=== PATIENT | male | born 1935 | race Caucasian/White ===

== ENCOUNTER 2017-10-01 10:58 | Day surgery (SDC) | payer MEDICARE, OTHER ==
--- NOTE | 2017-09-30 15:07 | HP ---
DATE OF SURGERY: 10/01/2017 ANTICIPATED PROCEDURE: Colonoscopy. HISTORY OF PRESENT ILLNESS: Patient presents for screening colonoscopy. He has had a little bit of lower abdominal discomfort. He has had some slightly loose stool, slightly firm stools. He is referred by physician. He has had a previous left inguinal herniorrhaphy by Dr. Shaw, previous laparoscopic appendectomy by Dr. Shaw. PAST MEDICAL HISTORY: ALLERGIES: CAFFEINE. MEDICATIONS: Diltiazem. Warfarin on hold. Omeprazole. PAST SURGICAL HISTORY: Tonsillectomy. Hemorrhoidectomy. Appendectomy. Left inguinal herniorrhaphy. SOCIAL HISTORY: Negative. FAMILY HISTORY: Negative. REVIEW OF SYSTEMS: Positive for hypertension. Pulmonary negative. GI: Per present illness. : Negative. Ortho/Neuro: Negative. PHYSICAL EXAMINATION: VITAL SIGNS: Normal. CHEST: Clear. COR: Regular. ABDOMEN: No palpable organomegaly or mass. IMPRESSION: The patient has had some very light symptoms lower abdominal discomfort, intermittent change in bowel habits. He presents for screening colonoscopy.
[~2017-10-01 10:58] MED LIST: Lactated Ringers 1,000 ML IV SCH
[2017-10-01] MEDS ORDERED: DIPRIVAN 200 MG/20 ML IV ONE (10:59)
[2017-10-01] MEDS ORDERED: BREVIBLOC 100 MG/10 ML IV ONE (10:59)
[2017-10-01] MEDS ORDERED: Lactated Ringers 1,000 ML IV ONE (11:18)
[2017-10-01] MEDS ORDERED: Zofran 4 MG/2 ML VIAL ONE (13:40)
--- NOTE | 2017-10-01 14:05 | OP ---
SURGERY DATE/TIME: 10/01/2017 1256 PREOPERATIVE DIAGNOSIS: Lower abdominal pain and screening. POSTOPERATIVE DIAGNOSIS: Severe diverticulosis of sigmoid. Limited prep with a prep score 6/9. PROCEDURE: Colonoscopy complete with some limit secondary to prep especially on the right side. SURGEON: Justo Ram M.D. SERGEANT OF CORRECTIONS: Randy Corbin M.D. ANESTHESIA: MAC. COMPLICATIONS: None. CONDITION: Stable. INDICATION: The patient has some left lower quadrant discomfort. He has not had any recent examination. DESCRIPTION OF PROCEDURE: Taken to endoscopy. MAC sedation provided. Anal digital examination satisfactory. Scope introduced. Rectum normal. Severe diverticulosis of sigmoid. It was navigated in descending, splenic, transverse. Starting in the right transverse there was a fair amount of stool the rest of the way. Ileocecal valve was able to be washed off and was normal. Base of the cecum washed off and normal. There was still a lot of stool in the right colon. Scope withdrawn. Circumferential withdrawal no large lesions were noted. The patient tolerated the procedure satisfactory. IMPRESSION: Severe diverticulosis. I do not think this exam needs repeated at this time in this patient at this age.
[2017-10-01 14:31] VITALS: O2SAT 95
[2017-10-01 15:37] VITALS: BP 124/69; PULSE 90
== END 2017-10-01 15:00 | disposition home or self-care (01) ==
LOC: SDC 10:58
PROVIDERS: ATTEND Surgery
DX: Z12.11 Encounter for screening for malignant neoplasm of colon (principal); K57.30 Diverticulosis of large intestine without perforation or abscess without bleeding; R10.32 Left lower quadrant pain; I10 Essential (primary) hypertension; Z79.01 Long term (current) use of anticoagulants; Z79.899 Other long term (current) drug therapy
CPT/HCPCS: 99100; J2405; J2704

== ENCOUNTER 2018-08-19 14:02 | Emergency (ER) | payer MEDICARE, OTHER ==
[2018-08-19] MEDS ORDERED: BACIGUENT PACKET TP ONE (14:19)
[2018-08-19] MEDS ORDERED: XYLOCAINE 1% HCL 20 ML MDV IJ ONE (14:19)
[2018-08-19] MEDS ORDERED: Adacel Vial IM ONE ×2 (14:19→14:45)
--- NOTE | 2018-08-19 14:23 | ERPHSYRPT ---
- History of Present Illness Time Seen by Provider: 08/19/18 14:20 Source: patient Exam Limitations: no limitations Physician History: 83-year-old white male arrives with complaint of a laceration to his right fore head symptoms for one half hour. According to the patient patient fell down a couple stairs and struck his head he is on Coumadin he has no loss of consciousness he has approximately 3 cm laceration to the right forehead. Past medical history includes atrial fibrillation coronary artery disease past surgical history includes tonsillectomy hemorrhoids appendectomy left inguinal hernia [place] Timing/Duration: today (30 minutes ago) Severity: mild Modifying Factors: Improves With: nothing Associated Symptoms: other (laceration right forehead), No nausea, No vomiting, No abdominal pain, No shortness of breath, No heartburn, No diaphoresis, No cough, No chills, No chest pain, No fever, No headaches, No loss of appetite, No malaise, No rash, No syncope, No seizure, No weakness Allergies/Adverse Reactions: caffeine Adverse Reaction (Verified 10/01/17 11:19) laxitive effect Home Medications: Diltiazem HCl 120 mg [Cardizem CD 120 MG] 120 mg PO DAILY 11/14/11 [ History] B2/Vits A,C,E/Lut/Zeaxanth/Min [Icaps Tablet] 1 each PO DAILY 08/16/14 [History] Cyanocobalamin/Folic Acid [Vitamin C98-Hkjwf Acid Tablet] 1 each PO DAILY [History] Warfarin Sodium 2 mg [Coumadin 2 MG] 4 mg PO 2100 11/03/14 [History] Lactobacillus Combination No.4 [Probiotic] 1 each PO DAILY 04/22/18 [History] Multivitamin [One-A-Day Essential] 1 each PO DAILY 04/22/18 [History] Ranitidine HCl [Acid Sampler Tester] 75 mg PO DAILY 04/22/18 [History] Hx Tetanus, Diphtheria Vaccination/Date Given: No Hx Influenza Vaccination/Date Given: Yes Hx Pneumococcal Vaccination/Date Given: No - Review of Systems Constitutional: Other (localize pain right forehead), No Fever, No Chills Eyes: No Symptoms Ears, Nose, & Throat: No Symptoms Respiratory: No Cough, No Dyspnea Cardiac: No Chest Pain, No Edema, No Syncope Abdominal/Gastrointestinal: No Symptoms Genitourinary Symptoms: No Dysuria Musculoskeletal: No Back Pain, No Neck Pain Skin: Other (laceration right forehead) Neurological: No Dizziness, No Focal Weakness, No Sensory Changes Psychological: No Symptoms Endocrine: No Symptoms All Other Systems: Reviewed and Negative - Past Medical History Pertinent Past Medical History: Yes Neurological History: Peripheral Neuropathy ENT History: No Pertinent History Cardiac History: Arrhythmia, Other Respiratory History: No Pertinent History Endocrine Medical History: No Pertinent History Musculoskeletal History: Osteoarthritis GI Medical History: No Pertinent History History: No Pertinent History Psycho-Social History: No Pertinent History Male Reproductive Disorders: No Pertinent History Other Medical History: Afib - Past Surgical History Past Surgical History: Yes Neuro Surgical History: No Pertinent History Cardiac: No Pertinent History Respiratory: No Pertinent History Gastrointestinal: Appendectomy, Hemorrhoidectomy, Hernia Repair Genitourinary: No Pertinent History Musculoskeletal: No Pertinent History Male Surgical History: No Pertinent History Other Surgical History: hemmorroidsretina surgerycataract surgery - Social History Smoking Status: Never smoker Exposure to second hand smoke: No Drug Use: none Patient Lives Alone: No - Nursing Vital Signs Nursing Vital Signs: Initial Vital Signs Temperature 97 F 08/19/18 14:17 Pulse Rate 74 08/19/18 14:17 Respiratory Rate 18 08/19/18 14:17 Blood Pressure 118/88 08/19/18 14:17 O2 Sat by Pulse Oximetry 98 08/19/18 14:17 Pain Scale Pain Intensity 3 - Physical Exam General Appearance: mild distress, alert, other (well-developed well-nourished white male 3 cm vertical laceration right forehead) Eye Exam: PERRL/EOMI, eyes nml inspection Ears, Nose, Throat Exam: normal ENT inspection, TMs normal, pharynx normal, moist mucous membranes Neck Exam: normal inspection, non-tender, supple, full range of motion Respiratory Exam: normal breath sounds, lungs clear, No respiratory distress Cardiovascular Exam: regular rate/rhythm, normal heart sounds, normal peripheral pulses, capillary refill <2 sec Gastrointestinal/Abdomen Exam: soft, normal bowel sounds, No tenderness, No mass Back Exam: normal inspection, normal range of motion, No CVA tenderness, No vertebral tenderness Extremity Exam: normal inspection, normal range of motion, pelvis stable Neurologic Exam: alert, oriented x 3, cooperative, 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 Otherwise nonacute senile brain with remote right caudate head lacunar infarct..) Ordered Tests: Active Orders 24 hr Category Date Time Status Prepare for Sutures STAT Care 08/19/18 14:19 Active Sutures STAT Care 08/19/18 14:19 Active Wound Care STAT Care 08/19/18 14:19 Active HEAD WITHOUT CONTRAST [CT] Stat Exams 08/19/18 14:19 Completed Medication Summary Discontinued Medications Generic Name Dose Route Start Last Admin Trade Name Freq PRN Reason Stop Dose Admin Bacitracin Zinc 0.9 gm 08/19/18 14:19 08/19/18 15:06 Baciguent Packet TP 08/19/18 14:20 0.9 gm STAT ONE Administration Diphtheria/Tetanus/Acell Pertussis 0.5 ml 08/19/18 14:19 08/19/18 15:06 Adacel Vial IM 08/19/18 14:20 0.5 ml .ONCE ONE Administration Diphtheria/Tetanus/Acell Pertussis Confirm 08/19/18 14:45 Adacel Vial Administered 08/19/18 14:46 Dose 0.5 ml IM .STK-MED ONE Lidocaine HCl 5 ml 08/19/18 14:19 08/19/18 14:49 Xylocaine 1% Hcl 20 Ml Mdv IJ 08/19/18 14:20 5 ml STAT ONE Administration - Progress Progress: improved Progress Note: 08/19/18 15:25 83-year-old white male who is on Coumadin arrives with complaint of 3 cm laceration to his right forehead. This occurred just prior to arrival patient's fell down a couple steps and struck his head. He has no loss of consciousness however he is on Coumadin. Head CT of the patient is remarkable for a tiny scalp laceration otherwise nonacute senile brain with remote right caudate head lacunar infarct. Laceration repair 3 cm laceration right forehead. Laceration was sterilely prepped and draped. It is anesthetized with 1% lidocaine. It is sutured with 7 5. 0 Ethilon sutures (interrupted) Bacitracin and dressing applied by nurse.. Patient will be discharged. DTaP was updated. - Departure Departure Disposition: Home Clinical Impression: Head contusion Qualifiers: Encounter type: initial encounter Contusion of head detail: unspecified part of head Qualified Code(s): S00.93XA - Contusion of unspecified part of head, initial encounter Forehead laceration Qualifiers: Encounter type: initial encounter Qualified Code(s): S01.81XA - Laceration without foreign body of other part of head, initial encounter Condition: Fair Critical Care Time: No Referrals: [facility] RASCON [Primary Care Provider] - Instructions: Laceration Repair With Stitches (DC), Closed Head Injury (DC) Additional Instructions: Return home. Bacitracin to area until healed. Keep area clean and dry. Cold packs to area 24 hours. Sutures out 5-7 days. Follow-up with your family doctor if signs of infection or problems. Return for acute distress or for severe symptoms Tylenol every 4 hours as needed for pain.
[2018-08-19 14:28] VITALS: BP 118/88; PULSE 74; O2SAT 98
--- NOTE | 2018-08-19 14:47 | XRAY ---
Indication: Right head injury following fall. Multiple contiguous axial images obtained through the head without contrast. Comparison: None Age-appropriate global atrophy and minimal periventricular degenerative micro-ischemia bilaterally. Remote appearing right caudate head lacunar infarct. No acute intracranial hemorrhage, abnormal extra-axial fluid collection, or mass effect. Fourth ventricle is midline without hydrocephalus. Tiny right frontoparietal scalp laceration. Bony calvarium intact. Visualized paranasal sinuses and mastoid air cells are clear. Impression: Tiny right scalp laceration. Otherwise nonacute senile brain with remote right caudate head lacunar infarct. CT DI 50.62
== END 2018-08-19 15:45 | disposition home or self-care (01) ==
LOC: ED 14:02
DX: S00.93XA Contusion of unspecified part of head, initial encounter (principal); S01.81XA Laceration without foreign body of other part of head, initial encounter; W10.8XXA Fall (on) (from) other stairs and steps, initial encounter; Y93.9 Activity, unspecified; Y92.89 Other specified places as the place of occurrence of the external cause; Z79.01 Long term (current) use of anticoagulants; I48.91 Unspecified atrial fibrillation; I25.10 Atherosclerotic heart disease of native coronary artery without angina pectoris; Z79.899 Other long term (current) drug therapy
CPT/HCPCS: 12013; 36415; 70450; 85610; 90471; 90715; 96372; 99284; A9270-GY

== ENCOUNTER 2018-09-05 05:19 | Emergency (ER) | payer MEDICARE, OTHER ==
--- NOTE | 2018-09-05 06:08 | ERPHSYRPT ---
- History of Present Illness Historian: patient, family Patient Subjective Stated Complaint: pt is alert and oriented. pt is ambulatory with a steady gait. pt comes in with c/o nausea, diarrhea, and abdominal pain. pt abdomen is firm, distended, pt has hyperactive bowel sounds. pt states his last bowel movement was at 0200 and has been having diarrhea all day. pt denies and red, black, or tarry stools. pt has been having chronic abd pain with alternating constipation and diarrhea. pt is scheduled to have an EGD later this month on 09/17/18. Triage Nursing Assessment: see above Timing/Duration: today, intermittent, worse Activities at Onset: none Quality: cramping Abdominal Pain Onset Location: generalized abdomen Pain Radiation: no radiation Severity of Pain-Max: moderate Severity of Pain-Current: moderate Modifying Factors: Improves With: defecating (diarrheal loose stools) Associated Symptoms: diarrhea, No chest pain, No loss of appetite, No nausea, No shortness of breath, No vomiting Previous symptoms: same symptoms as today Hx Tetanus, Diphtheria Vaccination/Date Given: Yes Hx Influenza Vaccination/Date Given: Yes Hx Pneumococcal Vaccination/Date Given: No Immunizations Up to Date: Yes <GUERA BUTLER - Last Filed: 09/05/18 06:53> <ZAYRA WILSON - Last Filed: 09/05/18 08:09> - History of Present Illness Time Seen by Provider: 09/05/18 05:50 Physician History: 83 y/o white male presents with 2 day h/o worsening abd distension, abd cramping and diarrhea. pt has these chronically but worse over last 2 days. pt has had an appendectomy in the past. he underwent a colonoscopy in October 2017 and found to have diverticular dz. he then soon after had a bout of diverticulitis. pts congressional representative is dr. duran. pt has an upper endoscopy scheduled for September 17. pts pcp is dr. rascon. 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 pt is on coumadin and has h/o atrial fibrillation. pt denies soa, denies cp and denies vomiting. pt denies new/changerer medications, denies new foods and denies recent antibiotics use. (GUERA BUTLER) Allergies/Adverse Reactions: caffeine Adverse Reaction (Verified 10/01/17 11:19) laxitive effect Home Medications: Diltiazem HCl 120 mg [Cardizem CD 120 MG] 120 mg PO DAILY 11/14/11 [ History] B2/Vits A,C,E/Lut/Zeaxanth/Min [Icaps Tablet] 1 each PO DAILY 08/16/14 [History] Cyanocobalamin/Folic Acid [Vitamin Q36-Ifbxl Acid Tablet] 1 each PO DAILY [History] Warfarin Sodium 2 mg [Coumadin 2 MG] 4 mg PO 2100 11/03/14 [History] Lactobacillus Combination No.4 [Probiotic] 1 each PO DAILY 04/22/18 [History] Dicyclomine HCl 20 mg [Bentyl 20 mg] 20 mg PO DAILY 09/05/18 [History] PANTOPRAZOLE 40 mg Tablet [Protonix 40MG Tablet] 40 mg PO DAILY 09/05/18 [ History] - Review of Systems Constitutional: No Symptoms Eyes: No Symptoms Ears, Nose, & Throat: No Symptoms Respiratory: No Symptoms Cardiac: No Symptoms Abdominal/Gastrointestinal: Abdominal Pain, Diarrhea, No Nausea, No Vomiting Genitourinary Symptoms: No Symptoms Musculoskeletal: No Symptoms Skin: No Symptoms Neurological: No Symptoms Psychological: No Symptoms Endocrine: No Symptoms Hematologic/Lymphatic: No Symptoms Immunological/Allergic: No Symptoms All Other Systems: Reviewed and Negative <GUERA BUTLER - Last Filed: 09/05/18 06:53> - Past Medical History Pertinent Past Medical History: Yes Neurological History: Peripheral Neuropathy ENT History: No Pertinent History Cardiac History: Arrhythmia, Other Respiratory History: No Pertinent History Endocrine Medical History: No Pertinent History Musculoskeletal History: Osteoarthritis GI Medical History: GERD History: No Pertinent History Psycho-Social History: No Pertinent History Male Reproductive Disorders: No Pertinent History Other Medical History: Afib - Past Surgical History Past Surgical History: Yes Neuro Surgical History: No Pertinent History Cardiac: No Pertinent History Respiratory: No Pertinent History Gastrointestinal: Appendectomy, Hemorrhoidectomy, Hernia Repair Genitourinary: No Pertinent History Musculoskeletal: No Pertinent History Male Surgical History: No Pertinent History Other Surgical History: hemmorroidsretina surgerycataract surgery - Social History Smoking Status: Never smoker Exposure to second hand smoke: No Drug Use: none Patient Lives Alone: No <GUERA BUTLER - Last Filed: 09/05/18 06:53> - Physical Exam General Appearance: mild distress, alert, anxiety Eye Exam: PERRL/EOMI Ears, Nose, Throat Exam: normal ENT inspection, moist mucous membranes Neck Exam: normal inspection, non-tender, supple, full range of motion Respiratory Exam: normal breath sounds, lungs clear, airway intact, No chest tenderness, No respiratory distress Cardiovascular Exam: tachycardia Gastrointestinal/Abdomen Exam: tenderness (generalize), distention, guarding, No rebound Rectal Exam: not done Back Exam: normal inspection, normal range of motion, No CVA tenderness Extremity Exam: normal inspection, normal range of motion, No pelvis stable Neurologic Exam: alert, oriented x 3, cooperative, 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 tested, normal mood/affect, nml cerebellar function, nml station & gait Skin Exam: normal color, warm, dry Lymphatic Exam: No adenopathy SpO2 Interpretation: normal SpO2: 99 O2 Delivery: Room Air <GUERA BUTLER - Last Filed: 09/05/18 06:53> - Nursing Vital Signs Nursing Vital Signs: Initial Vital Signs Pulse Rate 119 H 09/05/18 05:28 Respiratory Rate 16 09/05/18 05:28 Blood Pressure 125/90 09/05/18 05:28 O2 Sat by Pulse Oximetry 99 09/05/18 05:28 Pain Scale Pain Intensity 0 Ordered Tests: Active Orders 24 hr Category Date Time Status IV Insertion STAT Care 09/05/18 06:11 Active ABDOMEN AND PELVIS W CONTRAST [CT] Stat Exams 09/05/18 06:11 Taken AMYLASE Stat Lab 09/05/18 06:20 Completed CBC W DIFF Stat Lab 09/05/18 06:20 Completed CMP Stat Lab 09/05/18 06:20 Completed LIPASE Stat Lab 09/05/18 06:20 Completed Lactic Acid Stat Lab 09/05/18 06:11 Completed PROTIME WITH INR Stat Lab 09/05/18 06:20 Completed UA W/RFX UR CULTURE Stat Lab 09/05/18 06:11 Uncollected Medication Summary Generic Name Dose Route Start Last Admin Trade Name Freq PRN Reason Stop Dose Admin Potassium Chloride 20 meq in 100 mls @ 50 mls/hr 09/05/18 06:50 09/05/18 07: 13 Potassium Chloride 20 Meq In Water 100ml IV 09/05/18 08:49 50 mls/hr STAT ONE Administration Discontinued Medications Generic Name Dose Route Start Last Admin Trade Name Veronique PRN Reason Stop Dose Admin Hydromorphone HCl 1 mg 09/05/18 06:11 09/05/18 06:21 Hydromorphone 1 Mg/Ml Ampule IV 09/05/18 06:12 1 mg STAT ONE Administration Hydromorphone HCl Confirm 09/05/18 06:17 Hydromorphone 1 Mg/Ml Ampule Administered 09/05/18 06:18 Dose 1 mg .ROUTE .STK-MED ONE Sodium Chloride 1,000 mls @ 999 mls/hr 09/05/18 06:11 09/05/18 06:21 Sodium Chloride 0.9% 1000 Ml IV 09/05/18 07:11 999 mls/hr .Q1H1M STA Administration Sodium Chloride Confirm 09/05/18 06:17 Sodium Chloride 0.9% 1000 Ml Administered 09/05/18 06:18 Dose 1,000 mls @ ud .ROUTE .STK-MED ONE Potassium Chloride Confirm 09/05/18 07:09 Potassium Chloride 20 Meq In Water 100ml Administered 09/05/18 07:10 Dose 100 mls @ ud IV .STK-MED ONE Ondansetron HCl 4 mg 09/05/18 06:11 09/05/18 06:21 Zofran 4 Mg/2 Ml Vial IV 09/05/18 06:12 4 mg STAT ONE Administration Ondansetron HCl Confirm 09/05/18 06:17 Zofran 4 Mg/2 Ml Vial Administered 09/05/18 06:18 Dose 4 mg .ROUTE .STK-MED ONE Lab/Rad Data: Laboratory Result Diagrams 09/05/18 06:20 09/05/18 06:20 Laboratory Results 09/05/18 09/05/18 09/05/18 Range/Units 06:20 06:20 06:20 WBC 5.3 (4.0-10.5) K/mm3 RBC 4.71 (4.1-5.6) M/mm3 Hgb 14.2 (12.5-18.0) gm/dl Hct 42.4 (42-50) % MCV 90.0 (78-100) fl MCH 30.1 (26-32) pg MCHC 33.5 (32-36) g/dl RDW 13.8 (11.5-14.0) % Plt Count 151 (150-450) K/mm3 MPV 11.4 H (6-9.5) fl Gran % 47.9 (36.0-66.0) % Eos # (Auto) 0.01 (0-0.5) Absolute Lymphs (auto) 1.33 (1.0-4.6) Absolute Monos (auto) 1.39 H (0.0-1.3) Lymphocytes % 25.0 (24.0-44.0) % Monocytes % 26.1 H (0.0-12.0) % Eosinophils % 0.2 (0.00-5.0) % Basophils % 0.8 (0.0-0.4) % Absolute Granulocytes 2.56 (1.4-6.9) Basophils # 0.04 (0-0.4) PT 27.0 H (8.83-12.87) SECONDS INR 2.30 (0.8-3.0) Sodium 143 (137-145) mmol/L Potassium 3.0 L (3.5-5.1) mmol/L Chloride 105 (98-107) mmol/L Carbon Dioxide 25 (22-30) mmol/L Anion Gap 16.0 H (5-15) MEQ/L BUN 19 (9-20) mg/dL Creatinine 1.17 (0.66-1.25) mg/dL Estimated GFR > 60.0 ML/MIN Glucose 106 (74-106) mg/dL Lactic Acid (0.4-2.0) Calcium 9.2 (8.4-10.2) mg/dL Total Bilirubin 0.80 (0.2-1.3) mg/dL AST 33 (17-59) U/L ALT 15 (0-50) U/L Alkaline Phosphatase 90 (38-126) U/L Serum Total Protein 8.5 H (6.3-8.2) g/dL Albumin 4.5 (3.5-5.0) g/dL Amylase 62 (30-110) U/L Lipase 62 (23-300) U/L 09/05/18 Range/Units 06:11 WBC (4.0-10.5) K/mm3 RBC (4.1-5.6) M/mm3 Hgb (12.5-18.0) gm/dl Hct (42-50) % MCV (78-100) fl MCH (26-32) pg MCHC (32-36) g/dl RDW (11.5-14.0) % Plt Count (150-450) K/mm3 MPV (6-9.5) fl Gran % (36.0-66.0) % Eos # (Auto) (0-0.5) Absolute Lymphs (auto) (1.0-4.6) Absolute Monos (auto) (0.0-1.3) Lymphocytes % (24.0-44.0) % Monocytes % (0.0-12.0) % Eosinophils % (0.00-5.0) % Basophils % (0.0-0.4) % Absolute Granulocytes (1.4-6.9) Basophils # (0-0.4) PT (8.83-12.87) SECONDS INR (0.8-3.0) Sodium (137-145) mmol/L Potassium (3.5-5.1) mmol/L Chloride (98-107) mmol/L Carbon Dioxide (22-30) mmol/L Anion Gap (5-15) MEQ/L BUN (9-20) mg/dL Creatinine (0.66-1.25) mg/dL Estimated GFR ML/MIN Glucose (74-106) mg/dL Lactic Acid 1.6 (0.4-2.0) Calcium (8.4-10.2) mg/dL Total Bilirubin (0.2-1.3) mg/dL AST (17-59) U/L ALT (0-50) U/L Alkaline Phosphatase (38-126) U/L Serum Total Protein (6.3-8.2) g/dL Albumin (3.5-5.0) g/dL Amylase (30-110) U/L Lipase (23-300) U/L <GUERA BUTLER - Last Filed: 09/05/18 06:53> - Progress Will see patient in: office <ZAYRA WILSON - Last Filed: 09/05/18 08:09> - Progress Progress Note: 09/05/18 06:[address] Wilson. i reviewed study results and pending tests to be followed up on. she accepts (GUERA BUTLER) <GUERA BUTLER - Last Filed: 09/05/18 06:53> - Departure Departure Disposition: Transfer Critical Care Time: No <ZAYRA WILSON - Last Filed: 09/05/18 08:09> - Departure Clinical Impression: Colon cancer metastasized to liver Condition: Stable Referrals: [facility] RASCON [Primary Care Provider] - Additional Instructions: [facility] Dr Valdovinos is accepting.
[2018-09-05] MEDS ORDERED: Sodium Chloride 0.9% 1000 ML 1,000 ML IV STA (06:11)
[2018-09-05] MEDS ORDERED: Hydromorphone 1 mg/ml Ampule IV ONE (06:11)
[2018-09-05] MEDS ORDERED: Zofran 4 MG/2 ML VIAL IV ONE (06:11)
[2018-09-05] MEDS ORDERED: Zofran 4 MG/2 ML VIAL ONE (06:17)
[2018-09-05] MEDS ORDERED: Hydromorphone 1 mg/ml Ampule ONE (06:17)
[2018-09-05] MEDS ORDERED: Sodium Chloride 0.9% 1000 ML 1,000 ML ONE (06:17)
[2018-09-05 06:24] LABS: BASOPHIL % 0.8 % (0.0-0.4); Basophil (Absolute #) 0.04 (0-0.4); Eosinophil % 0.2 % (0.00-5.0); Eosinophil (Absolute #) 0.01 (0-0.5); Granulocyte Absolute (ANC) 2.56 (1.4-6.9); Granulocytes % 47.9 % (36.0-66.0); Hematocrit 42.4 % (42-50); Hemoglobin 14.2 gm/dl (12.5-18.0); Lymphocyte (Absolute #) 1.33 (1.0-4.6); Mean Corpuscular Hemoglobin 30.1 pg (26-32); Mean Corpuscular Hgb Concent. 33.5 g/dl (32-36); Mean Platelet Volume 11.4 fl (6-9.5); Monocyte (Absolute #) 1.39 (0.0-1.3); Monocytes % 26.1 % (0.0-12.0); Platelet Count 151 K/mm3 (150-450); Red Blood Count 4.71 M/mm3 (4.1-5.6); Red Cell Distribution Width 13.8 % (11.5-14.0); White Blood Count 5.3 K/mm3 (4.0-10.5)
[2018-09-05 06:35] LABS: INR 2.3 (0.8-3.0)
[2018-09-05 06:40] LABS: ALBUMIN 4.5 g/dL (3.5-5.0); ALKALINE PHOSPHATASE 90 U/L (38-126); AMYLASE 62 U/L (30-110); BLOOD UREA NITROGEN 19 mg/dL (9-20); CHLORIDE 105 mmol/L (98-107); Calcium 9.2 mg/dL (8.4-10.2); Carbon Dioxide 25 mmol/L (22-30); Creatinine 1 1.17 mg/dL (0.66-1.25); Glucose 106 mg/dL (74-106); LIPASE 62 U/L (23-300); SGOT/AST 33 U/L (17-59); SGPT/ALT 15 U/L (0-50); SODIUM 143 mmol/L (137-145); Total Protein 8.5 g/dL (6.3-8.2)
[2018-09-05] MEDS ORDERED: POTASSIUM CHLORIDE 20 mEq IN WATER 100ML 20 MEQ/100 ML BAG IV ONE (06:50)
[2018-09-05] MEDS ORDERED: POTASSIUM CHLORIDE 20 mEq IN WATER 100ML 100 ML IV ONE (07:09)
[2018-09-05 08:41] VITALS: BP 125/75; PULSE 74; O2SAT 98
--- NOTE | 2018-09-05 09:21 | XRAY ---
Indication: Abdominal pain, bloating, and diarrhea. Multiple contiguous axial images obtained through the abdomen and pelvis using 80 cc Isovue 370 contrast only. Comparison: January 05, 2018. Lung bases again demonstrates minimal bibasilar dependent atelectasis with new small right effusion. Heart is not enlarged. Enlarging moderate-sized hiatal hernia with small paraesophageal ascites. New large abdominal ascites with mesenteric stranding. No free air. Noncontrasted stomach appears nonobstructed. Again previous appendectomy. Small and large bowel loops are now mild/moderately distended to the level of the sigmoid where there is segment of moderate wall thickening with intraluminal narrowing concerning for mass. Colon is distended up to 6.7 cm in diameter with moderate diffuse scattered colonic fecal debris. There is distal rectal feces and bowel gas. Fluid leveling in the descending and sigmoid favoring diarrhea. Stable bilateral renal cysts. New nonobstructing left renal microcalculus. Splenomegaly measuring 13 cm in CC dimension. Urinary bladder again demonstrates circumferential wall thickening either incomplete distention versus inflammation. Impression: Remaining liver, gallbladder, pancreas, spleen, adrenal glands, kidneys, ureters, and bladder appear unremarkable. Again mild aortoiliac calcifications. No AAA or pathological retroperitoneal lymphadenopathy. Osseous structures again demonstrates moderate degenerative changes throughout the spine. Impression: 1. Segment of sigmoid colon wall thickening and intraluminal narrowing worrisome for mass. Finding produces partial obstruction. 2. New large ascites, right effusion, and nonobstructing left renal microcalculus. 3. Again urinary bladder wall thickening either incomplete distention versus inflammation. 4. Incidental hiatal hernia, bilateral renal cysts, mild fecal stasis, and splenomegaly. Comment: Preliminary interpretation was made by [facility]. No critical discrepancy. CTDI 15.75
== END 2018-09-05 08:50 | disposition short-term general hospital (02) ==
LOC: ED 05:19
DX: C18.9 Malignant neoplasm of colon, unspecified (principal); C78.7 Secondary malignant neoplasm of liver and intrahepatic bile duct; G62.9 Polyneuropathy, unspecified; M19.90 Unspecified osteoarthritis, unspecified site; K21.9 Gastro-esophageal reflux disease without esophagitis; Z79.01 Long term (current) use of anticoagulants; Z79.899 Other long term (current) drug therapy
CPT/HCPCS: 36000; 36415; 74177; 80053; 82150; 83605; 83690; 85025; 85610; 96360; 96365; 96374; 96375; 99285; J1170; J2405; J3480